=== PATIENT | female | born 1970 | race Caucasian/White ===

== ENCOUNTER 2016-09-21 21:39 | Emergency (ER) | payer OTHER ==
--- NOTE | ~2016-09-21 | ER ---
PATIENT'S NAME: ANA ORTEGA [facility] AGE: 45 Y [address] ROOM: [place] [address] LOCATION: [facility] ADMIT DATE: 09/21/2016 ER/Outpatient Report DISCHARGE DATE: 09/22/2016 FAMILY PHYSICIAN: Physician, Unknown ATTENDING PHYSICIAN: Johan Whitley CHIEF COMPLAINT: Chest and abdominal pain with back pain. HISTORY OF PRESENT ILLNESS: Ms. Ortega presents with abdominal pain which started around 5 p.m., maybe 6 p.m. She went to [facility] in [place], was diagnosed with nonspecific abdominal pain and possibly heartburn, told to take some antacids and discharged. She states she had no symptom relief from that and came here for further evaluation. She was on her way home from [place] back to [place]. She has a history of multiple issues including gastric banding. She has had multiple abdominal surgeries. She has also had multiple cosmetic surgeries. She was recently placed on a statin because this is the fourth time she has had this type of pain. The previous times it was short lived, but felt like crushing pressure. She states that within the last month she had a cardiac catheterization that was "normal." She did have a pacer placed because she was bradycardic in the 35 to 38 range but was feeling okay otherwise. She denies any other recent change. As she tries to recall the past few episodes, the pain always seems to start within a few hours of eating a meal. She states that nothing has really helped in the past because it has always gone before she can get the help. Today, it is unusual in its duration and intensity. She is concerned that it may be her gallbladder. PAST MEDICAL HISTORY: Have been reviewed based on information the patient has given and documented in the record and reviewed by me. SOCIAL HISTORY: Have been reviewed based on information the patient has given and documented in the record and reviewed by me. MEDICATIONS: Have been reviewed based on information the patient has given and documented in the record and reviewed by me. ALLERGIES: HAVE BEEN REVIEWED BASED ON INFORMATION THE PATIENT HAS GIVEN AND DOCUMENTED IN THE RECORD AND REVIEWED BY ME. REVIEW OF SYSTEMS: PATIENT'S NAME: ANA ORTGEA [facility] AGE: 45 Y [address] ROOM: [place] [address] LOCATION: [facility] ADMIT DATE: 09/21/2016 ER/Outpatient Report DISCHARGE DATE: 09/22/2016 FAMILY PHYSICIAN: , Unknown ATTENDING PHYSICIAN: Johan Whitley All systems reviewed and are negative except as noted in the HPI. PHYSICAL EXAMINATION: VITAL SIGNS: Blood pressure 137/66, pulse is 60, respiratory rate 18, temperature 97.1, SpO2 is 100% on room air. Pain is rated at 9/10. GENERAL: An age appropriate female, recumbent on the exam table in obvious pain, crying, and abrasive attitude and language. On re-exam, the patient was much more calm, very appropriate, and actually very nice. NEURO: The patient is awake and alert. GCS is 15. No focal deficits. No asymmetry. HEENT: Normocephalic, atraumatic. Eyes are PERRL. Oropharynx is clear. NECK: Supple. Trachea is midline. HEART: Regular rate and rhythm with no murmurs. LUNGS: Clear to auscultation bilateral. No rhonchi, wheezes, or rales. Chest wall is nontender. ABDOMEN: Slightly tender in the epigastrium, right upper quadrant, poorly localizable. Negative Elizalde's sign. The abdomen is, otherwise, unremarkable on exam. BACK: Normal to inspection and palpation. No CVA tenderness. EXTREMITIES: Warm and well perfused. No appreciable erythema, edema, swelling, or deformities. SKIN: Clean, dry, and intact. LABORATORY DATA AND X-RAYS: Ultrasound reveals cholecystitis without cholelithiasis and normal common bile duct size. Three-way abdomen was obtained with no evidence of free air, perforation, cardiac abnormalities, or obstruction. CBC is unremarkable. INR is 1. GGT is 115. CMS with potassium at 3.3, chloride is 111, CO2 is 23, BUN is 17, creatinine 0.9, GFR 77. LFTs are with elevated alkaline phosphatase of 178, AST of 429, ALT is 209. Amylase and lipase 43 and 231 respectively. CK-MB, troponin, and CRP are not elevated above detectable threshold. Lactate is 1.4. Urinalysis with no evidence of infection. IMPRESSION: 1. Biliary colic with cholelithiasis. 2. Mild hypokalemia. EMERGENCY DEPARTMENT COURSE: The patient was seen and evaluated as above. She was given Zofran and Dilaudid with complete resolution of her symptoms. On re-evaluation, the patient was much more cordial and appropriate. It is my opinion that she was in such discomfort that she was needing relief from pain to be able to have a conversation. She was found to have elevated LFTs and GGT. This spurred PATIENT'S NAME: ANA ORTEGA [facility] AGE: 45 Y [address] ROOM: [place] [address] LOCATION: [facility] ADMIT DATE: 09/21/2016 ER/Outpatient Report DISCHARGE DATE: 09/22/2016 FAMILY PHYSICIAN: Physician, Unknown ATTENDING PHYSICIAN: Johan Whitley evaluation by ultrasound of the hepatobiliary system. This is notable for cholelithiasis with stones near the neck of the gallbladder. There is no evidence of hepatic abnormalities. The common bile duct is not dilated. There is no evidence on labs of choledocholithiasis. Not consistent with cholecystitis on exam and labs. Based on her history, this is probably the most likely thing. She was feeling much better and in fact did not really want any pain medication. I have given her prescriptions for Zofran and [place] to have as she is trying to travel back to [place]. This should help her feel better if needed en route. She expressed her thanks and assured me that it would not be difficult to follow up with a local surgeon for further evaluation of her presentation. All questions were answered, and the patient was discharged in an improved condition with no pain. MD AMARA SILVA/ariadne /[id number] d: 09/22/16514 t: 09/23/16 1303, OUTPATIENT REPORT
[2016-09-21 22:18] LABS: BASOPHIL % 0.3 %; EOSINOPHIL % 0.3 %; HEMATOCRIT 35.9 % (33.0-46.0); HEMOGLOBIN 12.3 g/dL (10.0-15.0); IMMATURE GRANULOCYTE % 0.3 %; LYMPHOCYTE # 2.7 K/uL (0.8-4.0); MCH 30.2 pg (27.0-34.0); MCHC 34.3 gm/dL (32.0-36.5); MCV 88.2 fl (83.0-98.0); MONOCYTE # 0.8 K/uL (0.0-1.0); MONOCYTE % 8.3 %; MPV 10.1 fl (9.4-12.4); NEUTROPHIL # (ANC) 5.7 K/uL (1.8-7.8); NEUTROPHIL % 61.8 %; NRBC % 0 /100WBC (0-0.00); PLATELET COUNT 247 K/uL (150-450); RBC 4.07 M/uL (3.50-5.50); RDW-CV 13.2 % (11.9-14.6); WBC 9.3 K/uL (4.0-11.0)
[2016-09-21 22:27] LABS: INR - (THERAPEUTIC) 1.04 (0.92-1.07); PROTIME 10.9 SECONDS (9.8-11.4); PTT 26 SECONDS (25-32)
[2016-09-21 22:40] LABS: ALBUMIN 3.6 gm/dL (3.5-5.0); ALK PHOS 178 IU/L (33-138); ALT 209 IU/L (12-78); ANION GAP 12.3 (10.0-19.0); AST 429 IU/L (10-40); BLOOD UREA NITROGEN 17 mg/dL (6-24); CALCIUM 8.3 mg/dL (8.5-10.5); CHLORIDE 111 mMol/L (96-110); CO2 23 mMol/L (22-32); CREATININE 0.9 mg/dL (0.5-1.1); POTASSIUM 3.3 mMol/L (3.7-5.1); SODIUM 143 mMol/L (135-145); TOTAL BILIRUBIN 0.6 mg/dL (0.0-1.5); TOTAL PROTEIN 7.2 g/dL (6.0-8.4)
[2016-09-21 23:04] LABS: BILIRUBIN URINE NEGATIVE (NEGATIVE); BLOOD URINE NEGATIVE /UL (NEGATIVE); COLOR URINE YELLOW (YELLOW); GLUCOSE URINE NEGATIVE (NEGATIVE); KETONE URINE NEGATIVE (NEGATIVE); LEUKOCYTES URINE 25 /UL (NEGATIVE); NITRITE URINE NEGATIVE (NEGATIVE); PROTEIN URINE 15 mg/dL (NEGATIVE); SPEC GRAVITY URINE 1.015 (1.003-1.035); TURBIDITY URINE CLEAR (CLEAR); UROBILINOGEN URINE 4 mg/dL (NORMAL)
[2016-09-21 23:12] LABS: BACTERIA URINE NEGATIVE (NEGATIVE); EPITHELIAL URINE 0-2 #/HPF (NEGATIVE); MUCUS URINE 2+ (NEGATIVE); RBC URINE NEGATIVE #/HPF (NEGATIVE); WBC URINE 0-2 #/HPF (NEGATIVE)
== END 2016-09-22 00:18 | disposition disaster alternative care site (69) ==
LOC: GMED 21:39
PROVIDERS: Emergency Medicine
DX: K80.70 Calculus of gallbladder and bile duct without cholecystitis without obstruction (principal); E87.6 Hypokalemia; Z98.51 Tubal ligation status
CPT/HCPCS: J1170; J2405